=== PATIENT | male | born 2000 | race Caucasian/White ===

== ENCOUNTER 2019-05-15 11:02 | Emergency (ER) | payer OTHER, MEDICAID, SELFPAY ==
[2019-05-15 11:10] VITALS: BP 124/72; PULSE 88; RESP 18; TEMP 36.7; O2SAT 98; BMI 31.1
[2019-05-15 11:25] LABS: Add Manual Diff / Slide Review NO; Basophils Absolute Auto 0 /uL (0-100); Basophils Percent Auto 0.3 % (0-2); Eosinophils Absolute Auto 200 /uL (0-450); Eosinophils Percent Auto 2.4 % (2-4); Hemoglobin 14.4 g/dL (13.5-17.5); Lymphocytes Absolute Auto 2200 /uL (1100-4500); Lymphocytes Percent Auto 26.8 % (25-40); Mean Corpuscular HGB Conc 33.4 % (30-36); Mean Corpuscular Hemoglobin 28.3 PG (26-34); Mean Corpuscular Volume 84.7 fL (80-100); Monocytes Absolute Auto 1100 /uL (0-900); Monocytes Percent Auto 12.9 % (3-14); Neutrophils Absolute Auto 4800 /uL (1500-7000); Neutrophils Percent Auto 57.6 % (50-75); Platelet Count 276 X10^3/uL (150-400); Red Blood Cell Count 5.07 X10^6/uL (4.5-5.9); Red Cell Distribution Width 12.6 % (11.6-14.8); White Blood Cell Count 8.3 X10^3/uL (4.5-11.0)
[2019-05-15 11:30] VITALS: BP 141/67; PULSE 86; RESP 20; O2SAT 98
[2019-05-15 11:39] LABS: Alanine Aminotransferase 30 IU/L (21-72); Albumin 4.6 g/dL (3.5-5.0); Albumin Globulin Ratio 1.2 (1.0-2.8); Alkaline Phosphatase 66 U/L (38-126); Aspartate Aminotransferase 34 IU/L (17-59); BUN Creatinine Ratio 12.5 (6-22); Bilirubin Total 0.5 mg/dL (0.2-1.3); Blood Urea Nitrogen 10 mg/dL (9-20); Calcium 10.1 mg/dL (8.4-10.2); Carbon Dioxide 28 mmol/L (22-32); Chloride 101 mmol/L (98-107); Estimated Glomerular Filt Rate > 60.0 mL/min (>60); Globulin 3.8 g/dL (1.7-4.1); Glucose 65 mg/dL (70-100); HEMOLYSIS < 15 (0-50); Potassium 3.8 mmol/L (3.4-5.1); Sodium 141 mmol/L (137-145); Total Protein 8.4 g/dL (6.3-8.2)
[2019-05-15 12:00] VITALS: BP 141/61; PULSE 89; RESP 20; O2SAT 97
--- NOTE | 2019-05-15 13:12 | ED_ITS ---
HPI - Seizure General Chief Complaint: Seizure Stated Complaint: hit head, seizure Time Seen by Provider: 05/15/19 12:13 Source: patient and family Mode of arrival: ambulatory Limitations: no limitations History of Present Illness HPI Narrative: Patient comes emergency department complaining of bruising to his face after unknown incident last night. Patient states the last thing he remembers is going to bed around 230 this morning, and when he woke up, he found that his face was bruised and his tooth was chipped. Patient states he has history of seizure disorder, and used to be on Lamictal but is not anything currently. He states that he feels as though he may have had a seizure last night. Patient denies any visual changes. He denies any nausea or vomiting. No weakness in arms or legs. No dizziness. He states that he is having some pain in his right central incisor which has been chipped. No headache. He states his nasal bone hurts. He noted dried blood in his right naris, but has not had any active epistaxis since awakening. Patient denies any other complaints at this time. Patient denies any use of alcohol or drugs recently. He did take some CBD oil a few days ago. He denies any vomiting or diarrhea. Related Data Home Medications Medication Instructions Recorded Confirmed methylphenidate HCl 72 mg PO QAM #0 05/31/17 05/15/19 lisinopril 40 mg PO DAILY 05/15/19 05/15/19 venlafaxine 225 mg PO DAILY 05/15/19 05/15/19 Previous Rx's Medication Instructions Recorded lamotrigine 200 mg PO BID #180 tab 09/06/17 levetiracetam [Keppra] 500 mg PO BID #30 tab 05/15/19 Allergies Allergy/AdvReac Type Severity Reaction Status Date / Time No Known Drug Allergies Allergy Verified 05/15/19 11:10 Review of Systems Constitutional Constitutional: Denies chills, Denies fatigue, Denies fever(s), Denies frequent falls, Denies lethargy and Denies weakness Eyes Eyes: Denies change in vision, Denies eye discharge, Denies irritation and Denies loss of vision ENT Ears, Nose, Mouth, and Throat: Denies change in voice, Denies dizziness, Denies neck pain, Denies sore throat and Denies throat swelling Comments: Facial injury Cardiovascular Cardiovascular: Denies chest pain, Denies irregular heart rhythm, Denies lightheadedness, Denies palpitations, Denies dyspnea, Denies dyspnea on exertion and Denies orthopnea Respiratory Respiratory: Denies cough, Denies dyspnea, Denies dyspnea on exertion and Denies wheezing Gastrointestinal Gastrointestinal: Denies abdominal pain, Denies change in bowel habits, Denies diarrhea, Denies nausea and Denies vomiting Genitourinary Genitourinary: Denies hematuria, Denies flank pain, Denies urinary incontinence and Denies urinary urgency Musculoskeletal Musculoskeletal: Denies back pain, Denies muscle weakness, Denies neck pain, Denies numbness and Denies tingling Integumentary/Breasts Skin/Breast: Denies pruritus, Denies erythema, Denies rash and Denies wounds Neurologic Neurologic: Denies behavioral changes, Denies confusion, Denies dizziness, Denies frequent falls, Denies loss of vision, Denies numbness, Denies tingling and Denies weakness Psychiatric Psychiatric: Denies anxiety, Denies behavioral changes, Denies confusion, Denies depression, Denies homicidal ideation and Denies suicidal ideation Endocrine Endocrine: Denies fatigue, Denies flushing and Denies palpitations Hematologic/Lymphatic Hematologic/Lymphatic: Denies easy bruising Allergic/Immunologic Allergic/Immunologic: Denies urticaria, Denies throat swelling and Denies wheezing FOR[facility], [facility] Medical History Seizure disorder (Acute) Surgical History No pertinent past surgical history (Acute) Social History Smoking Status: Never smoker Social History Smoking Status: Never smoker Exam Initial Vital Signs Initial Vital Signs: Vital Signs Temperature 98.0 F 05/15/19 11:10 Pulse Rate 88 05/15/19 11:10 Respiratory Rate 18 05/15/19 11:10 Blood Pressure 124/72 05/15/19 11:10 Pulse Oximetry 98 05/15/19 11:10 Const General: cooperative and well developed Nutritional Appearance: well nourished Orientation: alert, awake, oriented x3 and not confused HENRI Head: normocephalic and contusion (Right forehead at hairline; left medial supraorbital rim at eyebrow) Ears: external ears normal Nose: epistaxis (Mild, dried, right naris), external nose abnormal (Contusion without edema, nasal bridge; no deformity) and No nasal discharge Face and sinus: face symmetric and No dry mucous membranes Mouth: oral mucosae normal and moist mucous membranes Teeth and gingiva: gingiva normal and abnormal tooth or associated gingiva (Distal 3rd of right maxillary central incisor avulsed; no bleeding;) Eyes General: appearance normal, both eyes and all related structures Eyelids: eyelids normal Conjunctivae: conjunctivae normal Sclera: sclerae normal Pupils: PERRL EOM: EOM intact bilaterally Neck Neck: normal visual inspection, trachea midline, No lymphadenopathy, No midline deformity and No JVD Lymphatic: No lymphedema Chest Chest: normal inspection of the chest Resp Effort & Inspection: normal respiratory effort, able to speak in complete sentences, no respiratory distress and no use of accessory muscles Auscultation: clear to auscultation bilaterally, no rales, no rhonchi and no wheezes Cardio Rate: regular rate Rhythm: regular rhythm Heart Sounds: no click, no gallops, no murmurs and no rubs Pulses: normal peripheral pulses GI Inspection: non-distended Palpation: soft, no hepatosplenomegaly, No guarding, No pulsatile mass and No tender Auscultation: normal bowel sounds Back/Spine/Pelvis Back: No CVA tenderness Cervical Spine: cervical ROM normal and No pain with cervical ROM Thoracic/Lumbar Spine: thoracic and lumbar spine normal to inspection Skin General: no rashes or lesions noted, No jaundice and No petechiae Neuro General: alert, oriented x3, gait normal and no focal motor deficits Speech: speech normal Extrem General: full ROM, no clubbing, cyanosis or edema, no pedal edema and no calf tenderness Psych Appearance: well kempt Mental Status: mental status grossly normal Attitude: cooperative Thought Content: normal and suicidality Judgment: judgment good Course Course Course Narrative: Patient was worked up with labs, which were unremarkable, and with CT scan of the head, which was also unremarkable. the patient does not want to be on Lamictal any longer, secondary to side effects. I have discussed with him that we could try another agent, but it is very important for him to follow up with his primary doctor, and most likely, also neurology. Patient of expresses understanding. He would like to try a low dose of Keppra and see if this helps the symptoms. I have prescribed this for him here. We have discussed home management of symptoms, as well as the usual indications for return. Two friends are present with him to drive him home. Orders Ordered: ED Orders 05/15/19 11:10 Complete Blood Count AUTO DIFF Stat Comprehensive Metabolic Panel Stat Lamotrigine Lamictal Stat 05/15/19 11:13 Urine Drug Screen, Rapid Stat EKG-12 Lead Stat 05/15/19 13:12 CT head/brain wo con Stat Vital Signs Vital signs: Vital Signs - 8 hr 05/15/19 11:10 05/15/19 11:30 05/15/19 12:00 Temperature 98.0 F Pulse Rate 88 86 89 Respiratory Rate 18 20 20 Blood Pressure 124/72 Blood Pressure [Left Arm] 141/67 H 141/61 H Pulse Oximetry 98 98 97 MDM - Seizure Medical Records Attestation: I reviewed the patient's medical records. Lab Data Attestation: I reviewed the patient's lab results. Result diagrams: 05/15/19 11:10 05/15/19 11:10 Labs: Lab Results 05/15/19 05/15/19 05/15/19 Range/Units 11:10 11:10 11:10 WBC 8.3 (4.5-11.0) X10^3/uL RBC 5.07 (4.5-5.9) X10^6/uL Hgb 14.4 (13.5-17.5) g/dL Hct 43.0 (41-53) % MCV 84.7 (80-100) fL MCH 28.3 (26-34) PG MCHC 33.4 (30-36) % RDW 12.6 (11.6-14.8) % Plt Count 276 (150-400) X10^3/uL Neut % (Auto) 57.6 (50-75) % Lymph % (Auto) 26.8 (25-40) % [place] % (Auto) 12.9 (3-14) % Eos % (Auto) 2.4 (2-4) % Baso % (Auto) 0.3 (0-2) % Neut # (Auto) 4800 (7222-2181) /uL Lymph # (Auto) 2200 (2620-6533) /uL [place] # (Auto) 1100 H (0-900) /uL Eos # (Auto) 200 (0-450) /uL Baso # (Auto) 0 (0-100) /uL Sodium 141 (137-145) mmol/L Potassium 3.8 (3.4-5.1) mmol/L Chloride 101 (98-107) mmol/L Carbon Dioxide 28 (22-32) mmol/L BUN 10 (9-20) mg/dL Creatinine 0.80 (0.66-1.25) mg/dL Estimated GFR > 60.0 (>60) mL/min BUN/Creatinine Ratio 12.5 (6-22) Glucose 65 L (70-100) mg/dL Calcium 10.1 (8.4-10.2) mg/dL Total Bilirubin 0.5 (0.2-1.3) mg/dL AST 34 (17-59) IU/L ALT 30 (21-72) IU/L Alkaline Phosphatase 66 (38-126) U/L Total Protein 8.4 H (6.3-8.2) g/dL Albumin 4.6 (3.5-5.0) g/dL Globulin 3.8 (1.7-4.1) g/dL Albumin/Globulin Ratio 1.2 (1.0-2.8) Urine RBC (0-5/HPF) Urine WBC (0-5/HPF) Urine Bacteria (None) Hyaline Casts (None) Urine Mucus (Negative) Ur Culture Indicated? Urine Opiates Screen (Negative) Ur Oxycodone Screen (Negative) Urine Methadone Screen (Negative) Ur Barbiturates Screen (Negative) Lamotrigine < 0.5 L (4.0-18.0) mcg/mL U Tricyclic Antidepress (Negative) Ur Phencyclidine Scrn (Negative) Ur Amphetamines Screen (Negative) U Methamphetamines Scrn (Negative) Ur MDMA Scrn (Ecstasy) (Negative) U Benzodiazepines Scrn (Negative) Urine Cocaine Screen (Negative) U Marijuana (THC) Screen (Negative) 05/15/19 05/15/19 Range/Units 13:20 13:20 WBC (4.5-11.0) X10^3/uL RBC (4.5-5.9) X10^6/uL Hgb (13.5-17.5) g/dL Hct (41-53) % MCV (80-100) fL MCH (26-34) PG MCHC (30-36) % RDW (11.6-14.8) % Plt Count (150-400) X10^3/uL Neut % (Auto) (50-75) % Lymph % (Auto) (25-40) % [place] % (Auto) (3-14) % Eos % (Auto) (2-4) % Baso % (Auto) (0-2) % Neut # (Auto) (6730-4231) /uL Lymph # (Auto) (2154-4118) /uL [place] # (Auto) (0-900) /uL Eos # (Auto) (0-450) /uL Baso # (Auto) (0-100) /uL Sodium (137-145) mmol/L Potassium (3.4-5.1) mmol/L Chloride (98-107) mmol/L Carbon Dioxide (22-32) mmol/L BUN (9-20) mg/dL Creatinine (0.66-1.25) mg/dL Estimated GFR (>60) mL/min BUN/Creatinine Ratio (6-22) Glucose (70-100) mg/dL Calcium (8.4-10.2) mg/dL Total Bilirubin (0.2-1.3) mg/dL AST (17-59) IU/L ALT (21-72) IU/L Alkaline Phosphatase (38-126) U/L Total Protein (6.3-8.2) g/dL Albumin (3.5-5.0) g/dL Globulin (1.7-4.1) g/dL Albumin/Globulin Ratio (1.0-2.8) Urine RBC None seen (0-5/HPF) Urine WBC None seen (0-5/HPF) Urine Bacteria None seen (None) Hyaline Casts 1-5/lpf (None) Urine Mucus 2+ H (Negative) Ur Culture Indicated? Cult not indicated Urine Opiates Screen Negative (Negative) Ur Oxycodone Screen Negative (Negative) Urine Methadone Screen Negative (Negative) Ur Barbiturates Screen Negative (Negative) Lamotrigine (4.0-18.0) mcg/mL U Tricyclic Antidepress Negative (Negative) Ur Phencyclidine Scrn Negative (Negative) Ur Amphetamines Screen Negative (Negative) U Methamphetamines Scrn Negative (Negative) Ur MDMA Scrn (Ecstasy) Negative (Negative) U Benzodiazepines Scrn Negative (Negative) Urine Cocaine Screen Negative (Negative) U Marijuana (THC) Screen Positive H (Negative) Point of Care Testing Glucose POC 106 Urine Dip Bedside Urine Glucose Negative Bedside Urine Bilirubin - Negative Bedside Urine Ketone - Negative Urine Specific [place] 1.015 Bedside Urine Occult Blood - Negative Bedside Urine pH 6.0 Bedside Urine Protein + 30 Bedside Urine Urobilinogen - Negative Bedside Urine Nitrite - Negative Bedside Urine Leukocytes - Negative Esterase Imaging Data CT scan - head: Radiologist's impression: PROCEDURE: CT HEAD/BRAIN WO CON INDICATIONS: seizure/head injury TECHNIQUE: Noncontrast 4.5 mm thick angled axial sections acquired from the foramen magnum to the vertex, with coronal and sagittal reformats. For radiation dose reduction, the following was used: automated exposure control, adjustment of mA and/or kV according to patient size. COMPARISON: None. FINDINGS: Image quality: Excellent. CSF spaces: Basal cisterns are patent. No extra-axial fluid collections. Ventricles are normal in size and shape. Brain: No midline shift. No intracranial masses or hemorrhage. Woods-white matter interface is normal. Skull and face: Calvarium and visualized facial bones are intact, without suspicious lesions. Sinuses: Visualized sinuses demonstrate complete opacification of the partially visualized left maxillary sinus. Scattered mucosal thickening is present within the ethmoid air cells. IMPRESSION: 1. No acute intracranial process. 2. Complete opacification of the partially visualized left maxillary sinus. Dictated by: Marely Rivers M.D. on 05/15/2019 at 13:37 Approved by: Marely Rivers M.D. on 05/15/2019 at 13:39 Discharge Plan Departure Patient Disposition: Home Clinical Impression: Seizure disorder Discharge Date/Time: 05/15/19 14:02 Instructions: DI for Seizure Disorder -- Adult Activity Restrictions/Additional Instructions: Your labs and CT scan look good. As the of the Lamictal did not agree with you, you may try Keppra instead, but is very important that you follow up with your primary care physician and with Neurology. If you would prefer, you may wait to start any seizure medication until you see Neurology. Prescriptions: New levetiracetam [Keppra] 500 mg tablet 500 mg PO BID Qty: 30 RF: 0 No Action methylphenidate HCl 36 MG tablet extended release 24hr 72 mg PO QAM Qty: 0 RF: 0 lamotrigine 200 MG tablet 200 mg PO BID Qty: 180 RF: 3 lisinopril 40 mg tablet 40 mg PO DAILY RF: 0 venlafaxine 225 mg tablet extended release 24hr 225 mg PO DAILY RF: 0 Referrals: [facility] [Provider Group]
--- NOTE | 2019-05-15 13:23 | DI.CT.S_ITS ---
PROCEDURE: CT HEAD/BRAIN WO CON INDICATIONS: seizure/head injury TECHNIQUE: Noncontrast 4.5 mm thick angled axial sections acquired from the foramen magnum to the vertex, with coronal and sagittal reformats. For radiation dose reduction, the following was used: automated exposure control, adjustment of mA and/or kV according to patient size. COMPARISON: None. FINDINGS: Image quality: Excellent. CSF spaces: Basal cisterns are patent. No extra-axial fluid collections. Ventricles are normal in size and shape. Brain: No midline shift. No intracranial masses or hemorrhage. Woods-white matter interface is normal. Skull and face: Calvarium and visualized facial bones are intact, without suspicious lesions. Sinuses: Visualized sinuses demonstrate complete opacification of the partially visualized left maxillary sinus. Scattered mucosal thickening is present within the ethmoid air cells. IMPRESSION: 1. No acute intracranial process. 2. Complete opacification of the partially visualized left maxillary sinus. Dictated by: Marely Rivers M.D. on 05/15/2019 at 13:37 Approved by: Marely Rivers M.D. on 05/15/2019 at 13:39
[2019-05-15 13:33] LABS: Bacteria Urine None Seen; RBC Urine None Seen (0-5/HPF); WBC Urine None Seen (0-5/HPF)
[2019-05-15 13:34] VITALS: BP 127/61; PULSE 82; RESP 20; O2SAT 98
[2019-05-15 13:44] LABS: Hyaline Casts Urine 1-5/LPF
[2019-05-15 13:45] LABS: Culture Indicated Urine Cult Not Indicated; Mucus Urine 2+ (Negative)
[2019-05-15 16:21] LABS: Urine Amphetamines Negative (Negative); Urine Barbiturates Negative (Negative); Urine Benzodiazepines Negative (Negative); Urine Cocaine Negative (Negative); Urine MDMA Negative (Negative); Urine Methadone Negative (Negative); Urine Methamphetamines Negative (Negative); Urine Morphine/Opi cutoff 2000 Negative (Negative); Urine Oxycodone Negative (Negative); Urine Phencyclidine Negative (Negative); Urine Tetrahydrocannabinol Positive (Negative); Urine Tricyclic Antidepressant Negative (Negative)
[2019-05-18 11:10] LABS: Lamotrigine Lamictal < 0.5 mcg/mL (4.0-18.0)
== END 2019-05-15 14:02 | disposition home or self-care (01) ==
PROVIDERS: Emergency Provider Emergency Medicine
DX: S09.90XA Unspecified injury of head, initial encounter (principal); R56.9 Unspecified convulsions; W22.8XXA Striking against or struck by other objects, initial encounter
CPT/HCPCS: 36591; 70450; 80053; 80175; 80305; 81003; 81015; 82962; 85025; 93005; 93010; 99283; 99285

== ENCOUNTER 2019-08-06 10:07 | Emergency (ER) | payer OTHER, MEDICAID, SELFPAY ==
--- NOTE | 2019-08-06 10:19 | ED.SEIZURE ---
HPI - Seizure General Chief Complaint: Seizure Stated Complaint: Seizure Time Seen by Provider: 08/06/19 10:09 Source: patient and EMS Mode of arrival: EMS Limitations: no limitations History of Present Illness HPI Narrative: Patient comes emergency department for seizure activity witnessed by bystanders. Patient states the last thing he remembers is walking in front of [employer] and the next thing he knew he was waking up in an ambulance. Medics state that bystander saw the patient fall to pavement and began having seizure like activity. The patient has a known seizure disorder and is normally on Lamictal, but has not had his medication for about a month. He states he has just been needing to get to the doctor. Patient states that he has some pain in around his mouth his face where he hit his face on the ground. He denies any neck pain, back pain, rib pain, hip pain, abdominal pain, or chest pain. No shortness breath. No nausea or vomiting. No headache. No visual changes. No weakness in arms or legs. No other complaints at this time. Related Data Home Medications Medication Instructions Recorded Confirmed methylphenidate HCl 72 mg PO QAM #0 05/31/17 05/15/19 lisinopril 40 mg PO DAILY 05/15/19 05/15/19 venlafaxine 225 mg PO DAILY 05/15/19 05/15/19 Previous Rx's Medication Instructions Recorded lamotrigine 200 mg PO BID #180 tab 09/06/17 levetiracetam [Keppra] 500 mg PO BID #30 tab 05/15/19 lamotrigine [Lamictal] 200 mg PO BID #60 tab 08/06/19 Allergies Allergy/AdvReac Type Severity Reaction Status Date / Time No Known Drug Allergies Allergy Verified 05/15/19 11:10 Review of Systems Constitutional Constitutional: Denies chills, Denies fatigue, Denies fever(s), Denies frequent falls, Denies lethargy and Denies weakness Eyes Eyes: Denies change in vision, Denies eye discharge, Denies irritation and Denies loss of vision ENT Ears, Nose, Mouth, and Throat: Denies change in voice, Denies dizziness, Denies neck pain, Denies sore throat and Denies throat swelling Comments: Facial trauma Cardiovascular Cardiovascular: Denies chest pain, Denies irregular heart rhythm, Denies lightheadedness, Denies palpitations, Denies dyspnea, Denies dyspnea on exertion and Denies orthopnea Respiratory Respiratory: Denies cough, Denies dyspnea, Denies dyspnea on exertion and Denies wheezing Gastrointestinal Gastrointestinal: Denies abdominal pain, Denies change in bowel habits, Denies diarrhea, Denies nausea and Denies vomiting Genitourinary Genitourinary: Denies hematuria, Denies flank pain, Denies urinary incontinence and Denies urinary urgency Musculoskeletal Musculoskeletal: Denies back pain, Denies muscle weakness, Denies neck pain, Denies numbness and Denies tingling Integumentary/Breasts Skin/Breast: Denies pruritus, Denies erythema, Denies rash and Denies wounds Neurologic Neurologic: Denies behavioral changes, Denies confusion, Denies dizziness, Denies frequent falls, Denies loss of vision, Denies numbness, Denies tingling and Denies weakness Psychiatric Psychiatric: Denies anxiety, Denies behavioral changes, Denies confusion, Denies depression, Denies homicidal ideation and Denies suicidal ideation Endocrine Endocrine: Denies fatigue, Denies flushing and Denies palpitations Hematologic/Lymphatic Hematologic/Lymphatic: Denies easy bruising Allergic/Immunologic Allergic/Immunologic: Denies urticaria, Denies throat swelling and Denies wheezing Patient History Social History Smoking Status: Never smoker Substance Use Type: marijuana Exam Narrative Exam Narrative: Extension of HEENT exam: No dental laxity. No mandibular step-off. Full range of motion mandible. Edema with superficial skin tear of upper lip on mucosa. Initial Vital Signs Initial Vital Signs: Vital Signs Temperature 98.7 F 08/06/19 10:20 Pulse Rate 76 08/06/19 10:20 Respiratory Rate 15 08/06/19 10:20 Blood Pressure 144/72 H 08/06/19 10:20 Pulse Oximetry 97 08/06/19 10:20 Const General: cooperative and well developed Nutritional Appearance: well nourished Orientation: alert, awake, oriented x3 and not confused [facility] Head: normocephalic Ears: external ears normal Nose: external nose normal and No nasal discharge Face and sinus: sinuses nontender, face symmetric, no sinus tenderness and No dry mucous membranes Mouth: oral mucosae normal and moist mucous membranes Teeth and gingiva: fair dentition (chronic dental fracture right maxillary central incisor) Throat: tonsils normal and uvula midline Eyes General: appearance normal, both eyes and all related structures Eyelids: eyelids normal Conjunctivae: conjunctivae normal Sclera: sclerae normal Pupils: PERRL EOM: EOM intact bilaterally Neck Neck: normal visual inspection, trachea midline, No lymphadenopathy, No midline deformity and No JVD Lymphatic: No lymphedema Chest Chest: normal inspection of the chest Resp Effort & Inspection: normal respiratory effort, able to speak in complete sentences, no respiratory distress and no use of accessory muscles Auscultation: clear to auscultation bilaterally, no rales, no rhonchi and no wheezes Cardio Rate: regular rate Rhythm: regular rhythm Heart Sounds: no click, no gallops, no murmurs and no rubs Pulses: normal peripheral pulses GI Inspection: non-distended Palpation: soft, no hepatosplenomegaly, No guarding, No pulsatile mass and No tender Auscultation: normal bowel sounds Back/Spine/Pelvis Back: No CVA tenderness Cervical Spine: cervical ROM normal and No pain with cervical ROM Thoracic/Lumbar Spine: thoracic and lumbar spine normal to inspection Skin General: no rashes or lesions noted, No jaundice and No petechiae Neuro General: alert, oriented x3, gait normal and no focal motor deficits Speech: speech normal Extrem General: full ROM, no clubbing, cyanosis or edema, no pedal edema and no calf tenderness Psych Appearance: well kempt Mental Status: mental status grossly normal Attitude: cooperative Thought Content: normal and suicidality Judgment: judgment good Course Course Course Narrative: Patient was worked up with CT of the head and face and given a dose of Lamictal. CTs were unremarkable. The patient was given a prescription for Lamictal, and is advised to follow up with his primary care physician as soon as possible. We have discussed home management of symptoms, as well as the usual indications for return. Orders Ordered: Discontinued Medications Lamotrigine (Lamictal) 100 mg PO NOW ONE Stop: 08/06/19 10:26 Last Admin: 08/06/19 10:39 Dose: 100 mg Documented by: CHUNGTO MDM - Seizure Medical Records Attestation: I reviewed the patient's medical records. Imaging Data CT scan - head: Radiologist's impression: PROCEDURE: CT HEAD/BRAIN WO CON INDICATIONS: trauma/seizure TECHNIQUE: Noncontrast 4.5 mm thick angled axial sections acquired from the foramen magnum to the vertex, with coronal and sagittal reformats. For radiation dose reduction, the following was used: automated exposure control, adjustment of mA and/or kV according to patient size. COMPARISON: [facility], CT, CT HEAD/BRAIN WO CON, 05/15/2019, 13:17. FINDINGS: Image quality: Excellent. CSF spaces: Basal cisterns are patent. No extra-axial fluid collections. Ventricles are normal in size and shape. Brain: No midline shift. No intracranial masses or hemorrhage. Woods-white matter interface is normal. Skull and face: Calvarium and visualized facial bones are intact, without suspicious lesions. Sinuses: Chronic complete opacification of the left maxillary sinus is again noted.. IMPRESSION: 1. Negative for acute stroke, hemorrhage, or mass. 2. No evidence of significant intracranial sequelae of acute trauma. 3. Chronic opacification of the left maxillary sinus. Dictated by: Davon Marin M.D. on 08/06/2019 at 11:04 Approved by: Davon Marin M.D. on 08/06/2019 at 11:[address]: Radiologist's impression: PROCEDURE: CT FACIAL BONES WO CON INDICATIONS: trauma/seizure TECHNIQUE: Noncontrast 2.5 mm thick axial images acquired from the mandible through the frontal sinuses, with coronal and sagittal reformatting. For radiation dose reduction, the following was used: automated exposure control, adjustment of mA and/or kV according to patient size. COMPARISON: None. FINDINGS: Image quality: Excellent. Bones and teeth: Orbital walton are intact. Sinus walton show no fracture or deformity. Nasal bones and septum are intact. Visualized portions of the mandible demonstrate no fractures or subluxation. Zygomatic arches are intact. Pterygoid plates are intact. Visualized portions of the skull base and auditory canals are intact. Sinuses: Chronic opacification of the left maxillary sinus with widening of the ostiomeatal complex. Cannot exclude underlying nasal polyp. Mucous retention cysts in the right maxillary sinus and right sphenoid sinus. Soft tissues: No edema, masses, or fluid collections. No enlarged lymph nodes. No soft tissue lacerations or debris. Vascular: Visualized vascular structures appear normal in the absence of contrast. Bony vascular foramina and canals are intact. IMPRESSION: 1. No evidence of facial fracture or mandibular fracture. 2. Chronic opacification of the left maxillary sinus. Cannot exclude underlying nasal polyp. Dictated by: Davon Marin M.D. on 08/06/2019 at 11:05 Approved by: Davon Marin M.D. on 08/06/2019 at 11:08 Discharge Plan Departure Patient Disposition: Home Clinical Impression: Seizure disorder Epileptic seizure Qualifiers: Epilepsy type: unspecified Intractability: not intractable Status epilepticus: without status epilepticus Qualified Code(s): G40.909 - Epilepsy, unspecified, not intractable, without status epilepticus Discharge Date/Time: 08/06/19 12:14 Instructions: DI for Seizure Disorder -- Adult Activity Restrictions/Additional Instructions: Your CT scans look good. Please restart your lamotrigine as soon as possible. Prescriptions: New lamotrigine [Lamictal] 200 mg tablet 200 mg PO BID Qty: 60 RF: 0 No Action methylphenidate HCl 36 MG tablet extended release 24hr 72 mg PO QAM Qty: 0 RF: 0 lamotrigine 200 MG tablet 200 mg PO BID Qty: 180 RF: 3 lisinopril 40 mg tablet 40 mg PO DAILY RF: 0 venlafaxine 225 mg tablet extended release 24hr 225 mg PO DAILY RF: 0 levetiracetam [Keppra] 500 mg tablet 500 mg PO BID Qty: 30 RF: 0
[2019-08-06 10:20] VITALS: BP 144/72; PULSE 76; RESP 15; TEMP 37.1; O2SAT 97
--- NOTE | 2019-08-06 10:23 | DI.CT.S_ITS ---
PROCEDURE: CT FACIAL BONES WO CON INDICATIONS: trauma/seizure TECHNIQUE: Noncontrast 2.5 mm thick axial images acquired from the mandible through the frontal sinuses, with coronal and sagittal reformatting. For radiation dose reduction, the following was used: automated exposure control, adjustment of mA and/or kV according to patient size. COMPARISON: None. FINDINGS: Image quality: Excellent. Bones and teeth: Orbital walton are intact. Sinus walton show no fracture or deformity. Nasal bones and septum are intact. Visualized portions of the mandible demonstrate no fractures or subluxation. Zygomatic arches are intact. Pterygoid plates are intact. Visualized portions of the skull base and auditory canals are intact. Sinuses: Chronic opacification of the left maxillary sinus with widening of the ostiomeatal complex. Cannot exclude underlying nasal polyp. Mucous retention cysts in the right maxillary sinus and right sphenoid sinus. Soft tissues: No edema, masses, or fluid collections. No enlarged lymph nodes. No soft tissue lacerations or debris. Vascular: Visualized vascular structures appear normal in the absence of contrast. Bony vascular foramina and canals are intact. IMPRESSION: 1. No evidence of facial fracture or mandibular fracture. 2. Chronic opacification of the left maxillary sinus. Cannot exclude underlying nasal polyp. Dictated by: Davon Marin M.D. on 08/06/2019 at 11:05 Approved by: Davon Marin M.D. on 08/06/2019 at 11:08
--- NOTE | 2019-08-06 10:23 | DI.CT.S_ITS ---
PROCEDURE: CT HEAD/BRAIN WO CON INDICATIONS: trauma/seizure TECHNIQUE: Noncontrast 4.5 mm thick angled axial sections acquired from the foramen magnum to the vertex, with coronal and sagittal reformats. For radiation dose reduction, the following was used: automated exposure control, adjustment of mA and/or kV according to patient size. COMPARISON: , CT, CT HEAD/BRAIN WO CON, 05/15/2019, 13:17. FINDINGS: Image quality: Excellent. CSF spaces: Basal cisterns are patent. No extra-axial fluid collections. Ventricles are normal in size and shape. Brain: No midline shift. No intracranial masses or hemorrhage. Woods-white matter interface is normal. Skull and face: Calvarium and visualized facial bones are intact, without suspicious lesions. Sinuses: Chronic complete opacification of the left maxillary sinus is again noted.. IMPRESSION: 1. Negative for acute stroke, hemorrhage, or mass. 2. No evidence of significant intracranial sequelae of acute trauma. 3. Chronic opacification of the left maxillary sinus. Dictated by: Davon Marin M.D. on 08/06/2019 at 11:04 Approved by: Davon Marin M.D. on 08/06/2019 at 11:05
[2019-08-06] MEDS: lamoTRIgine 100 MG TABLET PO (10:39)
[2019-08-06 10:42] VITALS: BP 144/72; PULSE 76; RESP 15; TEMP 37.1; O2SAT 97; BMI 28.5
[2019-08-06 11:00] VITALS: BP 141/90; PULSE 63; RESP 16; O2SAT 98
[2019-08-06 12:03] VITALS: BP 142/59; PULSE 74; RESP 16; O2SAT 96
--- NOTE | 2019-08-07 11:27 | CM.DPNOTE ---
Provided patient with a taxi voucher to [facility] - where he can catch a bus to [place] - and filled his lamictal perscription for a month (Both taxi and RX funds came from the [employer]). Told patient that this was not a resource he could rely on and would need to get in with [facility] for seizure medication. He would be one to refer to ED STAFFING OPERATIONS MANAGER when program begins.
== END 2019-08-06 12:14 | disposition home or self-care (01) ==
PROVIDERS: Emergency Provider Emergency Medicine
DX: G40.909 Epilepsy, unspecified, not intractable, without status epilepticus (principal)
CPT/HCPCS: 70450; 70486; 93041; 99284

== ENCOUNTER 2021-02-08 15:25 | Emergency (ER) | payer OTHER, MEDICAID, SELFPAY ==
[2021-02-08 15:20] VITALS: BP 132/89; PULSE 128; RESP 22; TEMP 36.9; O2SAT 95; BMI 25.7
--- NOTE | 2021-02-08 15:45 | ED.GENADULT ---
HPI - General Adult General Chief complaint: Seizure Stated complaint: Seizure Time Seen by Provider: 02/08/21 15:25 Source: patient and EMS Mode of arrival: EMS Limitations: no limitations History of Present Illness HPI narrative: Patient is a 20-year-old male. Does have a history of epilepsy. Has not been on any of his medications for at least the past couple weeks. He told nursing staff that was because he did not have any insurance. Was at his normal state health. Was fishing with another individual when he had a witnessed generalized tonic-clonic seizure. Patient states that he does not remember the event immediately preceding the seizure. Unsure as to how long it lasted but it did resolve on its own. He arrived by EMS. Related Data Home Medications Medication Instructions Recorded Confirmed methylphenidate HCl 72 mg PO QAM #0 05/31/17 05/15/19 lisinopril 40 mg PO DAILY 05/15/19 05/15/19 venlafaxine 225 mg PO DAILY 05/15/19 05/15/19 Previous Rx's Medication Instructions Recorded lamotrigine 200 mg PO BID #180 tab 09/06/17 levetiracetam [Keppra] 500 mg PO BID #30 tab 05/15/19 lamotrigine [Lamictal] 200 mg PO BID #60 tab 08/06/19 levetiracetam [Keppra] 500 mg PO BID #60 tab 02/08/21 Allergies Allergy/AdvReac Type Severity Reaction Status Date / Time No Known Drug Allergies Allergy Verified 05/15/19 11:10 Review of Systems Constitutional Constitutional: Denies headache(s) ENT Ears, Nose, Mouth, and Throat: Denies headache(s) Cardiovascular Cardiovascular: Denies chest pain and Denies dyspnea Respiratory Respiratory: Denies dyspnea Gastrointestinal Gastrointestinal: Denies abdominal pain Integumentary/Breasts Skin/Breast: Denies rash Comments: Abrasions right-sided face Neurologic Neurologic: Reports confusion, Denies headache(s) and Reports seizure-like activity Psychiatric Psychiatric: Reports confusion Hematologic/Lymphatic On Anticoagulants: No Patient History Medical History (Updated 02/08/21 @ 17:16 by Kye Marin DO) Seizure disorder Surgical History No pertinent past surgical history Social History (Reviewed 06/08/21 @ 15:59 by VENKATESH Aquino Smoking Status: Never smoker Smoking Status: Never smoker Substance Use Type: marijuana Exam Initial Vital Signs Initial Vital Signs: Vital Signs Temperature 98.5 F 02/08/21 15:20 Pulse Rate 128 H 02/08/21 15:20 Respiratory Rate 22 02/08/21 15:20 Blood Pressure 132/89 02/08/21 15:20 Pulse Oximetry 95 02/08/21 15:20 Const General: cooperative and comfortable HENMT Head: abrasion (Right-sided face) Mouth: oral mucosae normal Resp Effort & Inspection: normal respiratory effort Auscultation: clear to auscultation bilaterally Cardio Rate: regular rate Rhythm: regular rhythm GI Inspection: non-distended Skin Other: Superficial abrasions right side of face Neuro General: patient alert, patient awake and moves all extremities Extrem General: capillary refill normal and No edema Psych Appearance: grossly normal and well kempt Course Orders Ordered: ED Orders 02/08/21 15:46 Consult to [employer] EQUIPMENT OPERATOR - Preload Supervisor Stat Discontinued Medications Levetiracetam 1,000 mg/ Sodium (Chloride) 110 mls @ 440 mls/hr IV NOW ONE Stop: 02/08/21 15:47 Last Infusion: 02/08/21 16:33 Dose: 0 mls/hr Documented by: Admin: 02/08/21 16:10 Dose: 440 mls/hr Documented by: CHARMAINE Vital Signs Vital signs: Vital Signs - 8 hr 02/08/21 15:20 02/08/21 16:29 Temperature 98.5 F Pulse Rate 128 H 116 H Respiratory Rate 22 13 Blood Pressure 132/89 140/73 Pulse Oximetry 95 97 Medical Decision Making Lab Data Lab results reviewed: Yes I reviewed the patient's lab results. Labs: Point of Care Testing Glucose POC 105 Point of care testing: Point of Care Testing Glucose POC 105 MDM Narrative Medical decision making narrative: Patient's history and physical exam is consistent with a seizure. He was postictal per EMS and was slightly confused upon arrival which resolved during his time here. Has remained tachycardic but otherwise has unremarkable vital signs. Has some abrasions to the right side of his face. Afebrile. Was seen by social work and he was given information to reestablish with insurance. Will given prescription for anti seizure medications. He was instructed that he cannot drive. He was given return precautions and follow-up instructions. He expressed understanding and agreement. Discharge Plan Departure Patient Disposition: Home Clinical Impression: Seizure disorder Instructions: DI for Seizure Disorder -- Adult Activity Restrictions/Additional Instructions: No driving into your cleared by either your neurologist or your primary doctor. I recommend that you contact the health resource is coordinator here at the hospital [phone] and also the information given to you by the neonatal social worker. Return to the emergency department for new or worsening symptoms Prescriptions: New levetiracetam [Keppra] 500 mg tablet 500 mg PO BID Qty: 60 RF: 3 No Action methylphenidate HCl 36 MG tablet extended release 24hr 72 mg PO QAM Qty: 0 RF: 0 lamotrigine 200 MG tablet 200 mg PO BID Qty: 180 RF: 3 lamotrigine [Lamictal] 200 mg tablet 200 mg PO BID Qty: 60 RF: 0 lisinopril 40 mg tablet 40 mg PO DAILY RF: 0 venlafaxine 225 mg tablet extended release 24hr 225 mg PO DAILY RF: 0 levetiracetam [Keppra] 500 mg tablet 500 mg PO BID Qty: 30 RF: 0
[2021-02-08] MEDS: levETIRAcetam 1,000 MG in SODIUM CHLORIDE 0.9% 100 ML 440 ML IV (16:10)
[2021-02-08 16:29] VITALS: BP 140/73; PULSE 116; RESP 13; O2SAT 97
--- NOTE | 2021-02-08 16:59 | CM.SWNOTE ---
SENIOR DIRECTOR CREATIVE SERVICES Note SENIOR DIRECTOR CREATIVE SERVICES receives consult and meets with patient. Patient presents to this ED via EMS after having a witnessed seizure while fishing. Present with patient is patient's girlfriend's dad. Patient agrees to talking with SENIOR DIRECTOR CREATIVE SERVICES with girlfriend's dad present. Patient presents as A/Ox4 with some delay in answering questions. Patient states he has been without [employer] insurance, medication and a PCP for a year. Patient states he was kicked off of [employer] insurance. Patient denies any HI or SI and self harm and reports he previously had thoughts of hurting himself in the past but no longer has those thoughts. Patient states he previously saw a counselor and no longer wants or needs to see a counselor. Patient states his seizures happen randomly but often occur when he is stressed or does not get enough sleep. Patient states at times he blacks out when he gets angry but he does not get angry often. 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 It is reported that patient is supported by girlfriend's family but estranged from his family. It is reported that patient receives food stamps. SENIOR DIRECTOR CREATIVE SERVICES discusses providing patient with information on how to sign up for state insurance, patient indicates agreement and understanding. SENIOR DIRECTOR CREATIVE SERVICES asks patient if he has any further questions or would benefit from any further support and patient declines. SENIOR DIRECTOR CREATIVE SERVICES provides patient with website and phone numbers for [place] [employer] plan finder/[employer] for patient to enroll in [facility] [employer] insurance. SENIOR DIRECTOR CREATIVE SERVICES reviews the above with ED provider Dr. Marin and he indicates agreement and understanding. Plan: Patient to d/c home when medically clear, patient's girlfriend's family endorses they will support patient in applying for insurance. SHAVON Clarke
== END 2021-02-08 17:23 | disposition home or self-care (01) ==
PROVIDERS: Emergency Provider Emergency Medicine
DX: G40.909 Epilepsy, unspecified, not intractable, without status epilepticus (principal)
CPT/HCPCS: 96365; 99283; 99284; J1953